=== PATIENT | female | born 1945 | race Caucasian/White ===

== ENCOUNTER 2020-08-27 05:29 | Inpatient (IN) | payer MEDICARE, OTHER ==
[~2020-08-27] VITALS: Ht 154.9 cm; Wt 65.8 kg
[2020-08-27] VITALS (26 sets, daily range): BP systolic 73–130; BP diastolic 40–78
--- NOTE | 2020-08-27 05:33 | NUR ---
pt bibra c/o sob. Pt unable to answer questions. Pt attached to monitor and groundwater monitoring technician and pox. Md at bedside for eval. Rt hand 18g and left hand 20g initated. Blood obtained and sent to lab. Upon assessment, pt right arm is red and slightly swollen. pt given blanket and call light within reach
[2020-08-27] MEDS ORDERED: NTG 50 MG/D5W250 ML BOTTL 250 ML IV ONE ×2 (05:46→06:00)
[2020-08-27 05:54] LABS: BASOPHILS # (AUTO) 0.1 /CMM (0.0-0.2); BASOPHILS % (AUTO) 0.7 % (0.0-2.0); EOSINOPHILS % (AUTO) 0.2 % (0.0-6.0); HEMATOCRIT 47 % (33-45); HEMOGLOBIN 15.5 g/dL (11.5-14.8); LYMPHOCYTES # (AUTO) 4.3 /CMM (0.8-4.8); LYMPHOCYTES % (AUTO) 26.6 % (20.0-44.0); MEAN CORPUSCULAR HGB CONC 33 g/dl (31.0-36.0); MEAN CORPUSCULAR VOLUME 90 fL (82-100); MONOCYTES # (AUTO) 0.4 /CMM (0.1-1.30); MONOCYTES % (AUTO) 2.8 % (2.0-12.0); NEUTROPHILS # (AUTO) 11.2 /CMM (1.8-8.9); NEUTROPHILS % (AUTO) 69.7 % (43.0-81.0); PLATELET COUNT (AUTO) 346 /CMM (150-450); RED BLOOD CELL COUNT(AUTO) 5.22 MIL/uL (4.0-5.2); WHITE BLOOD COUNT (AUTO) 16.1 K/uL (4.3-11.0)
[2020-08-27 06:11] LABS: CALCIUM, SERUM 9.6 mg/dL (8.5-10.1); CARBON DIOXIDE 36 mmol/L (21-32); CHLORIDE 95 mmol/L (98-107); CREATININE 0.4 mg/dL (0.6-1.3); GLUCOSE 262 mg/dL (74-106); POTASSIUM 3.3 mmol/L (3.5-5.1); SODIUM SERUM 134 mmol/L (136-145); UREA NITROGEN, BLOOD 13 mg/dL (7-18)
--- NOTE | 2020-08-27 06:15 | NUR ---
covid swabs sent to lab
[2020-08-27 06:24] LABS: ALANINE AMINOTRANSFERASE 33 U/L (12-78); ALBUMIN 3.9 g/dL (3.4-5.0); ALKALINE PHOSPHATASE 128 U/L (46-116); ASPARTATE AMINOTRANSFERASE 27 U/L (15-37); BILIRUBIN,DIRECT 0.2 mg/dL (0.0-0.2); BILIRUBIN,TOTAL 0.7 mg/dL (0.2-1.0); TOTAL PROTEIN, SERUM 8.1 g/dL (6.4-8.2)
--- NOTE | 2020-08-27 07:05 | NUR ---
gave report to AFSANEH Matos for ashley
[2020-08-27] MEDS ORDERED: FUROSEMIDE 20 MG/2 ML VIAL ONE (07:30)
[2020-08-27] MEDS ORDERED: FUROSEMIDE 20 MG/2 ML VIAL IV ONE (07:30)
--- NOTE | 2020-08-27 07:30 | NUR ---
ASSESSED PT ON BED ASLEEP ON BED EASILY AROUSABLE, ON NON RB AT 15LPM SAT AT 95%, WITH ONGOING NITRO DRIP. V/S STABLE, KEPT RESTED AND COMFORTABLE. WILL CONTINUE TO MONITOR.
--- NOTE | 2020-08-27 08:33 | NUR ---
room [id number]
[2020-08-27] MEDS ORDERED: POTA8TAB3 PO (08:40)
[2020-08-27] MEDS ORDERED: MULT-447 PO (08:40)
[2020-08-27] MEDS ORDERED: BISA10SU11 RC (08:40)
[2020-08-27] MEDS ORDERED: DOCU-141 PO (08:40)
[2020-08-27] MEDS ORDERED: IPRA4AER IH (08:40)
[2020-08-27] MEDS ORDERED: ACET-2605 PO (08:40)
[2020-08-27] MEDS ORDERED: NA P133E RC (08:40)
[2020-08-27] MEDS ORDERED: ESCI10TA PO (08:40)
[2020-08-27] MEDS ORDERED: ASPI-1420 PO (08:40)
[2020-08-27] MEDS ORDERED: RILU50TA4 PO (08:40)
[2020-08-27] MEDS ORDERED: GUAI120013 PO (08:40)
[2020-08-27] MEDS ORDERED: ASCO-352 PO (08:40)
[2020-08-27] MEDS ORDERED: ACET-868 PO (08:40)
[2020-08-27] MEDS ORDERED: MAGN400T26 PO (08:40)
[2020-08-27] MEDS ORDERED: MAGN400O6 PO (08:40)
--- NOTE | 2020-08-27 08:40 | NUR ---
REPORT GIVEN TO AFSANEH SANTOS FOR BEA. WITH ONGOING NTG DRIP.
[2020-08-27 10:03] LABS: ABG BASE EXCESS 1.2 mmol/L; ABG OXYGEN SATURATION 99.5 % (92.0-98.5); ABG PCO2 64.5 mmHg (35.0-45.0); ABG PH 7.283 (7.350-7.450); AaDO2 446.5 mmHg; COHb 2.4 % (0.5-1.5); MetHb 0.1 % (0.0-1.5); SITE, ABG Right Radial; VENT MODE, BG ST 15/5 100% BUR 12
--- NOTE | 2020-08-27 10:30 | NUR ---
RN RECEIVING NOTES REPORT RECEIVED FROM RN BREONNA. PATIENT ARRIVED IN RM 257 VIA ACLS PROTOCOL. BIPAP SETTINGS AT 15/5 100% FIO2 AND NOT IN ANY DISTRESS. ASTER MIDLINE AND PERIPHERAL LINESX2 INTACT. NITROGLYCERIN DRIN WAS NOT RESUMED DUE TO DECREASED BP IN THE 70S ON ARRIVAL. SAFETY CHECKS IN PLACE. WILL CONTINUE TO MONITOR.
--- NOTE | 2020-08-27 10:39 | NUR ---
fio2 titrate down by dr. Hurst from 100% to 80%. rn aware on changes made. Addendum: 08/27/20 at 1040 by ANISH KIRKPATRICK RT Amended: Links added.
--- NOTE | 2020-08-27 11:30 | NUR ---
RN NOTE SON CAME TO VISIT. HE CONFIRMED THAT PATIENT HAS RECEIVED 2 DOSES OF MODERNA VACCINE EARLY THIS YEAR UNABLE TO SAY EXACT DATES.
[2020-08-27] MEDS ORDERED: ONDANSETRON HCL/PF 4 MG/2 ML VIAL IVP PRN (13:00)
[2020-08-27] MEDS ORDERED: ACETAMINOPHEN 650 MG/SUPP.RECT RC PRN (13:00)
[2020-08-27] MEDS: IPRATROPIUM NEB FS 0.5 MG/2.5 ML AMPUL.NEB NEB SCH ×2 (13:09→19:30)
[2020-08-27] MEDS: ALBUTEROL HALF STRENGTH 1.25 MG/3 ML VIAL.NEB NEB SCH ×2 (13:09→19:30)
[2020-08-27] MEDS: ENOXAPARIN SODIUM 40 MG/0.4 ML DISP.SYRIN SQ SCH (13:16)
[2020-08-27 13:54] LABS: ABG BASE EXCESS 2.7 mmol/L; ABG OXYGEN SATURATION 98.8 % (92.0-98.5); ABG PCO2 58.6 mmHg (35.0-45.0); ABG PH 7.331 (7.350-7.450); ABG PO2 128.2 mmHg (75.0-100.0); AaDO2 380.7 mmHg; COHb 2.4 % (0.5-1.5); MetHb 0.2 % (0.0-1.5); O2Hb 96.2 % (94.0-97.0); SITE, ABG Right Radial; VENT MODE, BG 15 IPAP / 5 EPAP
--- NOTE | 2020-08-27 14:09 | NUR ---
fio2 decreased from 80% to 40% due to 100% spo2 and 128 pao2. Addendum: 08/27/20 at 1410 by ANISH KIRKPATRICK RT Amended: Links added.
--- NOTE | 2020-08-27 15:00 | NUR ---
RN NOTE ECHO WAS DONE AND RESULTED WITH 55-60% EF. EKG ALSO SHOWS NSR.
--- NOTE | 2020-08-27 16:50 | NUR ---
RN NOTE DR HAMMOND NOTIFIED OF PATIENT'S URINE OUTPUT OF 60MLS DESPITE RECEIVING LASIX 20MG AT ER THIS MORNING.
--- NOTE | 2020-08-27 18:23 | NUR ---
RN CLOSING NOTES PATIENT IS AWAKE, MOUTHS INCOMPREHENSIBLE WORDS FROM UNDER THE MASK. BIPAP SETTINGS AT 15/5 40% FIO2 AND NOT IN ANY DISTRESS. ASTER MIDLINE AND PERIPHERAL LINESX2 INTACT. KEPT NPO. DIAZ DRAINED 100MLS THE LAST 8HRS-MD NOTIFIED. SAFETY CHECKS IN PLACE. WILL ENDORSE TO NIGHT RN FOR CONTINUITY OF CARE..
--- NOTE | 2020-08-27 19:32 | NUR ---
RT NOTE TX NOT GIVEN DUE TO PENDING COVID RESULTS. NO RESPIRATORY DISTRESS NOTED AT THIS TIME. RN TA AWARE. WILL MONITOR.
[2020-08-28] VITALS (46 sets, daily range): BP systolic 86–191; BP diastolic 42–128
[2020-08-28] MEDS: ALBUTEROL HALF STRENGTH 1.25 MG/3 ML VIAL.NEB NEB SCH ×4 (01:30→20:00)
[2020-08-28] MEDS: IPRATROPIUM NEB FS 0.5 MG/2.5 ML AMPUL.NEB NEB SCH ×4 (01:30→20:00)
--- NOTE | 2020-08-28 02:00 | NUR ---
QUALITY ASSURANCE CALIBRATOR PT NOTED TO DESATURATE TO 81% FIO2 INCREASEDTO 100% BY RT. ABG ORDERED BY WORKPLACE RELATIONS ADVISER. HR 129 BP 184/128. ABG PH 7.207 PCO2 74.6 PO2 55 AND HCO3 29. RELAYED TO DR MELLY Galaviz/ORDERS TO CONTINUE MONITORING.
--- NOTE | 2020-08-28 02:04 | NUR ---
RT NOTE SPO2 READING @ 90% HR 133 RR 23. AWAITING NEW ORDERS. WILL CONTINUE TO MONITOR CLOSELY.
--- NOTE | 2020-08-28 02:06 | NUR ---
RT NOTE TX NOT GIVEN DUE TO PENDING COVID RESULTS. ABG PERFORMED @ 5563 AND RESULTS REPORTED TO AFSANEH CHAPPELL AND MD PICKARD. WILL CONTINUE TO MONITOR AND AWAIT FURTHER ORDERS.
--- NOTE | 2020-08-28 03:00 | NUR ---
FORENSIC EXAMINER CALL PLACED TO DR PICKARD PT BP 170/85; PT ON BIPAP NOT RECEIVING ADEQUATE VOLUME.
--- NOTE | 2020-08-28 03:46 | NUR ---
JOGGLE PRESS OPERATOR EXCHANGE ATTEMTPING TO REACH DR PICKARD AGAIN.
--- NOTE | 2020-08-28 04:17 | NUR ---
CREDIT ADMINISTRATION OFFICER RCD ORDERS FROM DR PICKARD TO REPEAT ABG.
--- NOTE | 2020-08-28 04:31 | NUR ---
WE WERE ADVISED BY ICU NURSE TO XRAY CX LATER POSSIBLE INTUBATION OF PATIENT AT 04:15 HRS
--- NOTE | 2020-08-28 04:37 | NUR ---
BRANCH LEAD RCD CALL FROM PTS SON COTY GRACE [phone] RT IS DOING ABG. UPDATED SON ON PTS CONDITION. PER SON PT SHOULD NOT BE INTUBATED PT IS DNR. SON STARTED CRYING STATING HE WANTS TO BE HERE WITH THE MOTHER WHEN SHE PASSESS. PER GAGANDEEP IN CHART FROM JUNE 2020 PT IS A FULL CODE AND WANTS ALL TREATMENT EXCEPT FEEDING TUBE. SON ON HIS WAY TO HOSPITAL AT THIS TIME.
[2020-08-28 04:43] LABS: BASOPHILS % (AUTO) 0.1 % (0.0-2.0); HEMATOCRIT 47 % (33-45); HEMOGLOBIN 15.2 g/dL (11.5-14.8); LYMPHOCYTES # (AUTO) 0.5 /CMM (0.8-4.8); LYMPHOCYTES % (AUTO) 1.7 % (20.0-44.0); MEAN CORPUSCULAR HGB CONC 33 g/dl (31.0-36.0); MEAN CORPUSCULAR VOLUME 90 fL (82-100); MONOCYTES # (AUTO) 0.8 /CMM (0.1-1.30); MONOCYTES % (AUTO) 2.5 % (2.0-12.0); NEUTROPHILS # (AUTO) 28.7 /CMM (1.8-8.9); NEUTROPHILS % (AUTO) 95.7 % (43.0-81.0); PLATELET COUNT (AUTO) 331 /CMM (150-450); RED BLOOD CELL COUNT(AUTO) 5.19 MIL/uL (4.0-5.2)
[2020-08-28 04:47] LABS: ABG BASE EXCESS -1.3 mmol/L; ABG OXYGEN SATURATION 83.7 % (92.0-98.5); ABG PCO2 74.6 mmHg (35.0-45.0); ABG PH 7.207 (7.350-7.450); AaDO2 583.4 mmHg; COHb 2.9 % (0.5-1.5); MetHb 0.2 % (0.0-1.5); O2Hb 81.1 % (94.0-97.0); SITE, ABG Right Radial
[2020-08-28 04:47] LABS: ABG OXYGEN SATURATION 96.6 % (92.0-98.5); ABG PCO2 127.9 mmHg (35.0-45.0); ABG PH 7.057 (7.350-7.450); ABG PO2 109.8 mmHg (75.0-100.0); AaDO2 475.3 mmHg; MetHb 0.2 % (0.0-1.5); O2Hb 93.5 % (94.0-97.0); SITE, ABG Right Radial
[2020-08-28 04:48] LABS: WHITE BLOOD COUNT (AUTO) 30.1 K/uL (4.3-11.0)
--- NOTE | 2020-08-28 04:48 | NUR ---
RT NOTE PERFORMED ABG ON RIGHT RADIAL. ABG RESULTS REPORTED TO RN TA AND MELLY JAMISON. WILL AWAIT FURTHER ORDERS.
--- NOTE | 2020-08-28 04:50 | NUR ---
ORACLE FINANCIALS DEVELOPER PH [phone] PCO2 127.9 PO2 109.8 HCO3 35.2 AWAITING SONS ARRIVAL TO DETERMINE CODE STATUS.
[2020-08-28 05:08] LABS: CALCIUM, SERUM 9.7 mg/dL (8.5-10.1); CREATININE 0.7 mg/dL (0.6-1.3); MAGNESIUM 2.2 mg/dL (1.8-2.4); POTASSIUM 3.5 mmol/L (3.5-5.1); THYROID STIMULATING HORMONE 1.337 uIU/mL (0.358-3.74)
--- NOTE | 2020-08-28 05:08 | NUR ---
BORING MILL OPERATOR FOR METAL ANNALEE GRACE AT BEDSIDE DOES NOT WANT PT TO BE INTUBATED. CALL PLACED TO DR PICKARD.
[2020-08-28 05:09] LABS: BAND % (MANUAL) 2 % (0.0-5.0); BASOPHILS % (MANUAL) 0 % (0.0-2.0); EOSINOPHILS % (MANUAL) 0 % (0-4); LYMPHOCYTES % (MANUAL) 4 % (16-48); MONOCYTES % (MANUAL) 3 % (0-11.0); NEUTROPHILS % (MANUAL) 91 (42-76)
--- NOTE | 2020-08-28 07:00 | NUR ---
RN NOTES RECEIVED PT ON BED, LETHARGIC , OPENS EYES TO VERBAL STIMULI, FOLLOWS SIMPLE COMMAND, ON TELE SR HR IN 90'S , ON BI PAP, O2 SAT WNL, PT IS DNR AND DNI , DIAZ DRAINING TO GRAVITY, R HAND AND L HAND IV SITES, CLEAN, DRY AND INTACT, SR UP x3, CALL LIGHT WITHIN EASY REACH, BED LOCKED AND IN LOWEST POSITION, CONTINUE TO MONITOR.
[2020-08-28] MEDS: PANTOPRAZOLE 40 MG VIAL IV SCH (08:15)
--- NOTE | 2020-08-28 08:53 | NUR ---
RT PER DR PINK PATIENT PLACED ON AVAPS MODE ON BIPAP. RR18, VT500, PEEP +5 100% FIO2. Addendum: 08/28/20 at 0854 by ISABELLA DEL RIO RT Amended: Links added.
[2020-08-28] MEDS ORDERED: BUMETANIDE INJ 8 MG in IV NS 0.9% 48 ML IV ONE (09:00)
[2020-08-28] MEDS ORDERED: Z GUARD REMEDY 2 OZ OINT TP PRN (09:00)
[2020-08-28] MEDS: POTASSIUM CL. PREMIX PERIPHER. 50 ML IV SCH ×4 (09:19→12:30)
--- NOTE | 2020-08-28 11:00 | NUR ---
RN NOTES PT'S SON REQUESTING TO TRANSFER THE PT TO [facility], DR HAMMOND NOTIFED .
[2020-08-28 11:34] LABS: BILIRUBIN,URINE MODERATE (NEGATIVE); COLOR,URINE DARK YELLOW (YELLOW); LEUKOCYTE ESTERASE ,URINE TRACE (NEGATIVE); NITRITE, URINE NEGATIVE (NEGATIVE); PROTEIN,URINE 100 mg/dl (NEGATIVE); UGLUCOSE NEGATIVE (NEGATIVE)
[2020-08-28 11:46] LABS: ABG BASE EXCESS 2.3 mmol/L; ABG OXYGEN SATURATION 98.8 % (92.0-98.5); ABG PCO2 63.7 mmHg (35.0-45.0); ABG PO2 139.3 mmHg (75.0-100.0); COHb 1.9 % (0.5-1.5); MetHb 0.2 % (0.0-1.5); O2Hb 96.7 % (94.0-97.0); SITE, ABG Left Radial; VENT MODE, BG avap vt500 18rr 100% +5
[2020-08-28] MEDS: ENOXAPARIN SODIUM 40 MG/0.4 ML DISP.SYRIN SQ SCH (12:04)
[2020-08-28] MEDS: PIPERACILLIN /TAZOBACTAM 3.375 G in IV D5W 50 ML IV SCH ×2 (12:27→17:41)
[2020-08-28 12:56] LABS: RBC,URINE 21-50 /HPF (0-2)
[2020-08-28 12:57] LABS: BACTERIA,URINE Many /HPF (None Seen); SQUAMOUS EPITHELIAL CELL,UR Few /HPF (None Seen)
--- NOTE | 2020-08-28 14:00 | NUR ---
RN NOTES PT REMAINS ON BIPAP, SON AT THE BEDSIDE, CONTINUE TO MONITOR .
--- NOTE | 2020-08-28 18:00 | NUR ---
RN NOTES PT REMAINS ON BIPAP. O2 SAT WNL, AWAITING TO BE TRANSFER TO [facility], VSS STABLE, WILL ENDOSE TO SUPERVISOR COMMUNICATIONS AND SIGNALS NURSE FOR CONTINUITY OF CARE .
--- NOTE | 2020-08-28 19:40 | NUR ---
RN NOTES RECEIVED PATIENT ASLEEP ON BED WITH BIPAP ON RATE12 15/5 FIO2 100%. PATIENT IS ALERT ORIENTED TO NAME SINUS TACHY HR 120'S.NO ACUTE RESP. DISTRESS. IV SITE ON RIGHT HAND G 18 AND LH G 20 AND LEFT ARM MIDLINE INTACT AND PATENT AND FLUSHED WELL. PATIENT HAS DIAZ CATH DRAINED VIA GRAVITY. TURN AND REPOSITION FOR COMFORTABLE. KEPT PT CLEAN AND DRY. WILL CONT. TO MONITOR.
[2020-08-29] VITALS (50 sets, daily range): BP systolic 86–179; BP diastolic 51–109
[2020-08-29] MEDS: PIPERACILLIN /TAZOBACTAM 3.375 G in IV D5W 50 ML IV SCH ×4 (00:34→17:17)
--- NOTE | 2020-08-29 01:00 | NUR ---
RN NOTES BED BATH DONE AND TOLERATED WELL. NO BM. VS REMAINED STABLE. REPOSITION PATIENT COMFORTABLE. KEPT PT CLEAN AND DRY. WILL CLOSELY MONITOR.
[2020-08-29] MEDS: ALBUTEROL HALF STRENGTH 1.25 MG/3 ML VIAL.NEB NEB SCH ×3 (01:23→13:37)
[2020-08-29] MEDS: IPRATROPIUM NEB FS 0.5 MG/2.5 ML AMPUL.NEB NEB SCH ×3 (01:23→13:37)
--- NOTE | 2020-08-29 03:25 | NUR ---
RN NOTES RECEIVED A CALL FROM [facility] SPOKE TO NIRU FROM TRANSFER CENTER AND GIVE UPDATE REGARDING PATIENT. PER NIRU THERES NO AVAILABLE BED AT THIS TIME. AND THEY WILL CALL FOR BED STATUS IF AVAILABLE.
--- NOTE | 2020-08-29 03:40 | NUR ---
RN NOTES COTY (SON), CALLED AND ASK FOR UPDATE OF HIS MOM. PATIENT ASLEEP AT THIS TIME WITH VSS. SON AND GIVE UPDATE REGARDING BED STATUS . AWARE THAT THE PATIENT WILL NOT BE TRANSFER UNTIL SHE WAS STABLE ENOUGH.
[2020-08-29 04:24] LABS: BASOPHILS # (AUTO) 0.1 /CMM (0.0-0.2); BASOPHILS % (AUTO) 0.5 % (0.0-2.0); HEMATOCRIT 44 % (33-45); HEMOGLOBIN 14.3 g/dL (11.5-14.8); LYMPHOCYTES # (AUTO) 0.4 /CMM (0.8-4.8); LYMPHOCYTES % (AUTO) 1.7 % (20.0-44.0); MEAN CORPUSCULAR HGB CONC 33 g/dl (31.0-36.0); MEAN CORPUSCULAR VOLUME 90 fL (82-100); MONOCYTES # (AUTO) 0.7 /CMM (0.1-1.30); MONOCYTES % (AUTO) 2.6 % (2.0-12.0); NEUTROPHILS # (AUTO) 24.8 /CMM (1.8-8.9); NEUTROPHILS % (AUTO) 95.2 % (43.0-81.0); PLATELET COUNT (AUTO) 279 /CMM (150-450); RED BLOOD CELL COUNT(AUTO) 4.87 MIL/uL (4.0-5.2); WHITE BLOOD COUNT (AUTO) 26.1 K/uL (4.3-11.0)
[2020-08-29 04:40] LABS: ALBUMIN 3.1 g/dL (3.4-5.0); BILIRUBIN,TOTAL 0.9 mg/dL (0.2-1.0); CALCIUM, SERUM 9.2 mg/dL (8.5-10.1); CREATININE 0.8 mg/dL (0.6-1.3); MAGNESIUM 2.2 mg/dL (1.8-2.4); PHOSPHORUS 5.8 mg/dL (2.5-4.9); POTASSIUM 3.9 mmol/L (3.5-5.1); TOTAL PROTEIN, SERUM 7.4 g/dL (6.4-8.2)
--- NOTE | 2020-08-29 07:05 | NUR ---
RN NOTES RECEIVED PT ON BED, LETHARGIC , OPENS EYES TO VERBAL STIMULI, FOLLOWS SIMPLE COMMAND, ON TELE SR HR IN 90'S , ON BIPAP, O2 SAT WNL, PT IS DNR AND DNI , DIAZ DRAINING TO GRAVITY, R HAND AND L HAND IV SITES, CLEAN, DRY AND INTACT, SR UP x3, CALL LIGHT WITHIN EASY REACH, BED LOCKED AND IN LOWEST POSITION, CONTINUE TO MONITOR.
[2020-08-29] MEDS: PANTOPRAZOLE 40 MG VIAL IV SCH (08:06)
[2020-08-29 10:06] LABS: ABG OXYGEN SATURATION 95.5 % (92.0-98.5); ABG PCO2 55.1 mmHg (35.0-45.0); ABG PH 7.326 (7.350-7.450); ABG PO2 73.9 mmHg (75.0-100.0); AaDO2 438.7 mmHg; COHb 2.5 % (0.5-1.5); MetHb 0.2 % (0.0-1.5); O2Hb 92.9 % (94.0-97.0); SITE, ABG Left Radial
[2020-08-29] MEDS: ENOXAPARIN SODIUM 40 MG/0.4 ML DISP.SYRIN SQ SCH (12:30)
--- NOTE | 2020-08-29 13:00 | NUR ---
RN NOTES PT ON BIPAP ,SON AT THE BEDSIDE, O2 SAT WNL , CONTINUE TO MONITOR .
--- NOTE | 2020-08-29 17:30 | NUR ---
RN NOTES O2 SAT IN LOW 70'S , DR PINK NOTIFIED, PT PLACED ON LEFT SIDE DOWN WITH CHEST PT. PLACED ON PEEP OF 10, BREATHING TX ORDERED PER MD ORDER , CONTINUE TO MONITOR.
--- NOTE | 2020-08-29 17:51 | NUR ---
RT PATIENT REMAINS ON BIPAP PER DR PINK PEEP INCREASED TO 10. FIO2 INCREASED TO 100%. PATIENT IN CRITICAL CONDITION WITH NOTED DECOMPENSATION. DR PINK AWARE. Addendum: 08/29/20 at 1753 by ISABELLA DEL RIO RT Amended: Links added.
[2020-08-29] MEDS ORDERED: ACETYLCYSTEINE 10% SOLN 400 MG/4 ML VIAL NEB SCH (18:00)
[2020-08-29] MEDS ORDERED: IPRATROPIUM NEB FS 0.5 MG/2.5 ML AMPUL.NEB NEB SCH (18:00)
--- NOTE | 2020-08-29 18:37 | NUR ---
RN NOTES PT OPENS EYES TO VERBAL STIMULI, FOLLOW SIMPLE COMMAND, ON BIPAP, PEEP AT 10 , O2 SAT IN LOW 80'S , MD AWARE, PT IS DNR/DNI, PT IS ON HER LEFT SIDE PER DR PINK ORDER . SR UP x3, CALL LIGHT WITHIN EASY REACH, BED LOCKED AND IN LOWEST POSITION, WILL ENDORSE TO NUCLEAR REACTOR ENGINEER NURSE FOR CONTINUITY OF CARE .
--- NOTE | 2020-08-29 19:40 | NUR ---
RN NOTES RECEIVED PATIENT ON BIPAP ON 22/07 RATE 18 FIO2 100% WITH PEEP 10 PATIENT IS ALERT TO NAME. SR/ST ON MONITOR. RESPONSIVE TO TACTILE STIMULI. PATIETN SATURATION IS <85% AND DR. PINK IS AWARE WITH ORDER TO PLACE PATIENT ON LEFT SIDE DOWN , CHEST PT ON RIGHT CHEST AND GIVE MUCOMYST AND ATROVENT BID AND PEEP 10 PER ANNEALING OVEN OPERATOR PATIENT IS DEVELOPING PROGRESSIVE ATELECTASIS ON RIGHT WITH SHUNTING. REMINDED AND VERIFIED RESPIRATORY THERAPHY ABOUT MD ORDER. IV SITE ON RIGHT HAND AND LA MIDLINE INTACT AND PATENT. DIAZ CATH DRAINED VIA GRAVITY. REPOSITION PATIENT ORDERED AND FOR SKIN SAFETY. WILL CLOSELY MONITOR.
--- NOTE | 2020-08-29 20:20 | NUR ---
RN NOTES INFORM REGARDING FAMILY REQUEST TO TALK TO SON COTY PATIENT WAS DESATING TO <85% AND FAMILY INSIST TO TALK TO MD AT THIS TIME. DESPITE OF EXPLANATION ABOUT THE ANIMAL KEEPER HEAD ORDER [facility] RT AND CN. AWAITING FOR MD TO RESPOND
[2020-08-29] MEDS ORDERED: ALBUTEROL HALF STRENGTH 1.25 MG/3 ML VIAL.NEB NEB PRN (20:30)
[2020-08-29] MEDS ORDERED: IPRATROPIUM NEB FS 0.5 MG/2.5 ML AMPUL.NEB NEB PRN (20:30)
[2020-08-29] MEDS: ACETYLCYSTEINE 10% SOLN 400 MG/4 ML VIAL NEB SCH (20:48)
--- NOTE | 2020-08-29 21:05 | NUR ---
RN NOTES BREATHING TX ORDERED ADMINISTERED TO PATIENT,PLACED ONLEFT SIDE DOWN AND CPT DONE ON RIGHT CHEST BY RT. SATURATION REMAINED ON BETWEEN 78-84%. ANNALEE ANSARI AT BEDSIDE.
[2020-08-30] VITALS (45 sets, daily range): BP systolic 78–136; BP diastolic 52–80
[2020-08-30] MEDS: PIPERACILLIN /TAZOBACTAM 3.375 G in IV D5W 50 ML IV SCH ×4 (00:01→17:50)
[2020-08-30 04:17] LABS: BASOPHILS # (AUTO) 0.1 /CMM (0.0-0.2); BASOPHILS % (AUTO) 0.2 % (0.0-2.0); HEMATOCRIT 45 % (33-45); HEMOGLOBIN 14.4 g/dL (11.5-14.8); LYMPHOCYTES # (AUTO) 0.6 /CMM (0.8-4.8); LYMPHOCYTES % (AUTO) 2.5 % (20.0-44.0); MEAN CORPUSCULAR HGB CONC 32 g/dl (31.0-36.0); MEAN CORPUSCULAR VOLUME 92 fL (82-100); MONOCYTES # (AUTO) 1.1 /CMM (0.1-1.30); MONOCYTES % (AUTO) 4.3 % (2.0-12.0); NEUTROPHILS # (AUTO) 23.3 /CMM (1.8-8.9); PLATELET COUNT (AUTO) 326 /CMM (150-450); RED BLOOD CELL COUNT(AUTO) 4.91 MIL/uL (4.0-5.2); WHITE BLOOD COUNT (AUTO) 25.1 K/uL (4.3-11.0)
[2020-08-30 04:24] LABS: CALCIUM, SERUM 9.3 mg/dL (8.5-10.1); CREATININE 1.1 mg/dL (0.6-1.3); MAGNESIUM 2.8 mg/dL (1.8-2.4); PHOSPHORUS 7.9 mg/dL (2.5-4.9); POTASSIUM 3.4 mmol/L (3.5-5.1)
--- NOTE | 2020-08-30 07:10 | NUR ---
RN NOTES RECEIVED PATIENT IN BED RESTING COMFORTABLY IN MODERATE HIGH BACK REST, LETHARGIC AND RESPONSIVE TO DEEP PAIN, REMAINED ON EVAP RATE 18 TV 500 AND FIO2 100% AND PEEP 10 TOLERATED AT THIS TIME SATURATION NOW 97%. ST ON MONITOR HR 100'S. IV SITE REMAINED INTACT AND PATENT. DIAZ CATH INTACT AND PATENT DRAINING FREELY VIA GRAVITY. SAFETY MEASURES MAINTAINED, WILL CONTINUE TO MONITOR.
--- NOTE | 2020-08-30 07:15 | NUR ---
RN NOTES PATIENT REMAINED ON AVAPSRATE 18 TV 500 AND FIO2 100% AND PEEP 10 TOLERATED AT THIS TIME SATURATION NOW A98%.. AFEBRILE. VSS. ST ON MONITOR HR 90'S AND LOW 110'S. PATIENT REMAINED LETHARGIC RESPONSIVE TO DEEP PAIN. IV SITE REMAINED INTACT AND PATENT. DIAZ CATH DRAINED WITH SMALL AMT. OF URINE. KEPT PT CLEAN AND DRY.. ENDORSE TO NEXT SHIFT TO TURN PATIENT ON LEFT SIDE AND SUPINE TO BREATH WELL PER ASSISTANT PROFESSOR OF PHYSICS RECOMMENDATION.
[2020-08-30] MEDS: ACETYLCYSTEINE 10% SOLN 400 MG/4 ML VIAL NEB SCH ×2 (07:48→19:34)
[2020-08-30] MEDS: Potassium Chloride 20 MEQ in IV NS 0.9% 1,000 ML IV SCH ×2 (08:29→22:30)
[2020-08-30] MEDS: PANTOPRAZOLE 40 MG VIAL IV SCH (08:33)
[2020-08-30 08:40] LABS: ABG BASE EXCESS 0.9 mmol/L; ABG OXYGEN SATURATION 98.6 % (92.0-98.5); ABG PCO2 70.7 mmHg (35.0-45.0); ABG PH 7.249 (7.350-7.450); ABG PO2 117.8 mmHg (75.0-100.0); AaDO2 524.5 mmHg; MetHb 0.2 % (0.0-1.5); O2Hb 96.4 % (94.0-97.0); PEEP,BG 10 cm H2O; SITE, ABG Right Brachial; VENT MODE, BG AVAPS: MIN P 15/ MAX P 30; VT, ABG 500 mL
--- NOTE | 2020-08-30 08:52 | NUR ---
bipap changes below per dr. hay: epap 5 fio2 80% rn notified on changes. Addendum: 08/30/20 at 0853 by ANISH KIRKPATRICK RT Amended: Links added.
[2020-08-30] MEDS: ENOXAPARIN SODIUM 40 MG/0.4 ML DISP.SYRIN SQ SCH (12:17)
[2020-08-30] MEDS ORDERED: ACETYLCYSTEINE 10% SOLN 400 MG/4 ML VIAL NEB SCH (18:00)
--- NOTE | 2020-08-30 18:28 | NUR ---
fio2 increased from 80% to 100% due to 84% spo2. Addendum: 08/30/20 at 1829 by ANISH KIRKPATRICK RT Amended: Links added.
--- NOTE | 2020-08-30 18:34 | NUR ---
RN NOTES PATIENT IN BED RESTING COMFORTABLY IN MODERATE HIGH BACK REST, OPEN EYES AND FOLLOW SIMPLE COMMAND,NONVERBAL, REMAINED ON EVAP RATE 18 TV 500 AND FIO2 100% AND PEEP 5 TOLERATED AT THIS TIME SATURATION NOW 93%. ST ON MONITOR HR 100'S. IV SITE REMAINED INTACT AND PATENT. DIAZ CATH INTACT AND PATENT DRAINING FREELY VIA GRAVITY. SAFETY MEASURES MAINTAINED, WILL ENDORSE TO MEXICAN FOOD MAKER NURSE FOR BEA.
--- NOTE | 2020-08-30 19:15 | NUR ---
RECEIVED PT ON BED LETHARGIC, OPEN EYES NOT FOLLOWING ANY COMMANDS, ON AVAPS MODE SETTING PER MD FIO2 100% SPO2 93% NO PAIN NOTED, TELE MONITOR READS SINUS TACHY 120'S, HAVE LA ML WITH ONGOIGN KCL 20 MEQ+NS @ 70ML/HR INFUSING WELL , HAVE DIAZ WITH YELLOW URINE DRAINING VIA GRAVITY BED ON LOWEST POSITION AND LOCKED SIDE RAILS UP X 2 CALL LIGHT WITHIN REACH WILL CONT TO MONITOR
[2020-08-30] MEDS: IPRATROPIUM NEB FS 0.5 MG/2.5 ML AMPUL.NEB NEB SCH (19:34)
--- NOTE | 2020-08-30 19:35 | NUR ---
RCVD PT ON AVAP MODE, RATE 18, EPAP 5 , VT 500, FIO2 100%. PT IS LETHARGIC AND NOT FOLLOWING COMMANDS. BREATHING TX GIVEN PER MD'S ORDER, NO ADVERSE REACTION NOTED. AMBU BAG @ BEDSIDE. WILL CONTINUE TO MONITOR T/O SHIFT.
[2020-08-31] VITALS (32 sets, daily range): BP systolic 88–158; BP diastolic 57–83
--- NOTE | 2020-08-31 00:38 | NUR ---
PT ON BED SLEEPING NO SIGN OF RESPIRATORY DISTRESS, NO PAIN NOTED STILL ON AVAPS SETTING PER MD FIO2 100% SPO2 96% WILL CONT TO MONITOR THE PT
[2020-08-31 04:19] LABS: BASOPHILS % (AUTO) 0.1 % (0.0-2.0); HEMATOCRIT 40 % (33-45); HEMOGLOBIN 12.9 g/dL (11.5-14.8); LYMPHOCYTES # (AUTO) 0.6 K/uL (0.8-4.8); LYMPHOCYTES % (AUTO) 2.8 % (20.0-44.0); MEAN CORPUSCULAR HGB CONC 33 g/dl (31.0-36.0); MEAN CORPUSCULAR VOLUME 89 fL (82-100); MONOCYTES # (AUTO) 0.9 K/uL (0.1-1.30); NEUTROPHILS # (AUTO) 20.3 K/uL (1.8-8.9); NEUTROPHILS % (AUTO) 93.1 % (43.0-81.0); PLATELET COUNT (AUTO) 230 K/uL (150-450); RED BLOOD CELL COUNT(AUTO) 4.43 MIL/uL (4.0-5.2); WHITE BLOOD COUNT (AUTO) 21.8 K/uL (4.3-11.0)
[2020-08-31 04:31] LABS: CALCIUM, SERUM 8.7 mg/dL (8.5-10.1); CARBON DIOXIDE 28 mmol/L (21-32); CHLORIDE 108 mmol/L (98-107); CREATININE 1.7 mg/dL (0.6-1.3); GLUCOSE 172 mg/dL (74-106); MAGNESIUM 2.5 mg/dL (1.8-2.4); POTASSIUM 3.8 mmol/L (3.5-5.1); SODIUM SERUM 149 mmol/L (136-145)
[2020-08-31 04:41] LABS: UREA NITROGEN, BLOOD 94 mg/dL (7-18)
[2020-08-31] MEDS ORDERED: MEROPENEM 500 MG in IV NS 0.9% 50 ML IV SCH (05:00)
[2020-08-31] MEDS ORDERED: MEROPENEM 500 MG in IV NS 0.9% 50 ML IV ONE (05:00)
[2020-08-31] MEDS ORDERED: MEROPENEM 500 MG VIAL IV ONE (05:28)
[2020-08-31 05:35] LABS: PHOSPHORUS 5.6 mg/dL (2.5-4.9)
--- NOTE | 2020-08-31 07:02 | NUR ---
PT ON BED ASLEEP EASY TO WAKE UP, STILL ON AVAP SETTING PER FIO2 100% SPO2 92%, TELE MONITOR READS SINUS RHTHM 96, STILL ON NS+20 MEQ KCL @70ML/HR HAVE DIAZ WITH YELLOW URINE DRAINING VIA GRAVITY, NO SIGNIFICANT CHANGES ON CONDITION NOTED, ALL NEEDS ATTENDED BED ON LOWEST POSITION AND LOCKED SIDE RAILS UP X2 CALL LIGHT WITHIN REACH WILL ENDORSED TO AM SHIFT NURSE
--- NOTE | 2020-08-31 07:10 | NUR ---
RN NOTES RECEIVED PATIENT IN BED RESTING COMFORTABLY IN MODERATE HIGH BACK REST, LETHARGIC AND RESPONSIVE TO DEEP PAIN, REMAINED ON EVAP RATE 18 TV 500 AND FIO2 100% AND PEEP 5 TOLERATED AT THIS TIME SATURATION NOW 97%. ST ON MONITOR HR 100'S. IV SITE REMAINED INTACT AND PATENT. DIAZ CATH INTACT AND PATENT DRAINING FREELY VIA GRAVITY. SAFETY MEASURES MAINTAINED, WILL CONTINUE TO MONITOR.
[2020-08-31] MEDS: IPRATROPIUM NEB FS 0.5 MG/2.5 ML AMPUL.NEB NEB SCH ×2 (07:30→19:43)
[2020-08-31] MEDS: ACETYLCYSTEINE 10% SOLN 400 MG/4 ML VIAL NEB SCH ×2 (07:30→19:43)
[2020-08-31] MEDS: PANTOPRAZOLE 40 MG VIAL IV SCH (08:08)
[2020-08-31] MEDS ORDERED: IV NS 0.9% 1,000 ML IV PRN (09:00)
[2020-08-31] MEDS: IV D5/0.45 NACL 1,000 ML IV SCH (11:10)
[2020-08-31] MEDS: MEROPENEM 500 MG in IV NS 0.9% 100 ML IV SCH ×2 (12:31→21:21)
[2020-08-31] MEDS: ENOXAPARIN SODIUM 40 MG/0.4 ML DISP.SYRIN SQ SCH (12:35)
--- NOTE | 2020-08-31 18:38 | NUR ---
AUTOMATIC PROFILE SHAPER OPERATOR NOTES PT ON BED OPEN EYES BUT DOES NOT FOLLOW COMMANDS, STILL ON AVAP SETTING PER FIO2 100% SPO2 94%, TELE MONITOR READS SINUS RHTHM 85, STILL ON D5 1/2 NS @70ML/HR, DIAZ WITH YELLOW URINE DRAINING VIA GRAVITY, SAFETY MEASURES MAINTAINED, DNR/DNI, WILL ENDORSE TO CHIP DRIER NURSE FOR BEA.
--- NOTE | 2020-08-31 19:30 | NUR ---
RN NOTE RECEIVED PT IN BED, MOANS TO DEEP PAIN . ON AVAP MODE, FIO2 60 %. PEEP 5, NO SIGNS OF DISTRESS NOTED, O2 SAT 97 %. ON TELE MONITORING, SHOWS SR WITH HR OF 84, PT IV PATENT AND INTACT, ON D5 1/2 NS AT 70 ML/HR. DIAZ IN PLACE DRAINING URINE BY GRAVITY. ALL SAFETY MEASURE IN PLACE. WILL CONTINUE TO MONITOR.
--- NOTE | 2020-08-31 20:12 | NUR ---
PT RECEIVED ON AVAPS MODE. PT TOLERATING SETTINGS. ALARMS SET AND AUDIBLE. CONTINUE TO MONITOR. Addendum: 08/31/20 at 2014 by FRANCO CLOUD RT Amended: Links added.
--- NOTE | 2020-08-31 20:30 | NUR ---
RN NOTE PT SON AT BEDSIDE, PT OPEN EYES. NO DISTRESS NOTED.
[2020-09-01] VITALS (25 sets, daily range): BP systolic 70–168; BP diastolic 36–94
[2020-09-01] MEDS: IV D5/0.45 NACL 1,000 ML IV SCH (01:12)
[2020-09-01 04:26] LABS: BASOPHILS % (AUTO) 0.1 % (0.0-2.0); HEMATOCRIT 37 % (33-45); HEMOGLOBIN 11.9 g/dL (11.5-14.8); LYMPHOCYTES # (AUTO) 0.9 K/uL (0.8-4.8); MEAN CORPUSCULAR HGB CONC 33 g/dl (31.0-36.0); MEAN CORPUSCULAR VOLUME 89 fL (82-100); MONOCYTES # (AUTO) 0.9 K/uL (0.1-1.30); MONOCYTES % (AUTO) 5.2 % (2.0-12.0); NEUTROPHILS # (AUTO) 15.8 K/uL (1.8-8.9); NEUTROPHILS % (AUTO) 89.7 % (43.0-81.0); PLATELET COUNT (AUTO) 192 K/uL (150-450); WHITE BLOOD COUNT (AUTO) 17.7 K/uL (4.3-11.0)
[2020-09-01] MEDS: MEROPENEM 500 MG in IV NS 0.9% 100 ML IV SCH ×3 (05:01→21:00)
[2020-09-01 05:10] LABS: CALCIUM, SERUM 8.4 mg/dL (8.5-10.1); CARBON DIOXIDE 28 mmol/L (21-32); CHLORIDE 112 mmol/L (98-107); CREATININE 1.9 mg/dL (0.6-1.3); GLUCOSE 250 mg/dL (74-106); MAGNESIUM 2.3 mg/dL (1.8-2.4); PHOSPHORUS 3.4 mg/dL (2.5-4.9); SODIUM SERUM 150 mmol/L (136-145)
[2020-09-01 05:14] LABS: POTASSIUM 2.6 mmol/L (3.5-5.1)
[2020-09-01 05:15] LABS: UREA NITROGEN, BLOOD 97 mg/dL (7-18)
--- NOTE | 2020-09-01 06:15 | NUR ---
RN NOTE PT POTASSIUM AT 2.6, NOTIFIED MARKET RELATIONSHIP MANAGER, DR. BRYAN. ORDERED KCL 80 MEQ IV. ORDER NOTED AND CARRIED OUT. CHARGE NURSE MADE AWARE.
[2020-09-01] MEDS: POTASSIUM CHLORIDE 10 MEQ/50 ML PREMIXED IVPB FOR PERIPHERAL LINE IV PRN ×2 (06:37→08:04)
[2020-09-01] MEDS ORDERED: IV NS 0.9% 250 ML IV PRN (07:00)
--- NOTE | 2020-09-01 07:00 | NUR ---
RN CLOSING NOTE: PATIENT REMAINS IN ROOM IN NO SIGNS OF RESPIRATORY DISTRESS, PATIENT STILL ON APAP;TOLERATING SETTINGS WELL SATURATING @ >95% SP02. SAFETY MEASURES IMPLEMENTED, BED IN LOWEST POSITION, LOCKED, SIDE RAILS UP, CALL LIGHT WITHIN REACH. ALL NEEDS AND ORDERS ADDRESSED DURING THE SHIFT. IV ACCESS MAINTAINED INTACT, SECURED AND FLUSHING WELL. KCL IV STARTED ORDERD. ALL DUE MEDS GIVEN ORDERED & SCHEDULED ; PATIENT TOLERATED WELL. PATIENT KEPT CLEAN AND COMFORTABLE WITHIN THE SHIFT. PATIENT ENDORSED TO INCOMING SHIFT RN WITH STABLE VITAL SIGN AND FOR CONTINUITY OF CARE.
[2020-09-01] MEDS: IPRATROPIUM NEB FS 0.5 MG/2.5 ML AMPUL.NEB NEB SCH ×2 (07:30→19:47)
[2020-09-01] MEDS: ACETYLCYSTEINE 10% SOLN 400 MG/4 ML VIAL NEB SCH ×2 (07:30→19:46)
--- NOTE | 2020-09-01 08:00 | NUR ---
RECEIVED PATIENT. PATIENT OPENS EYES SPONTANEOUSLY. ABLE TO TRACK SPEAKER AND MAINTAIN EYE CONTACT WHEN TALKING. LETHARGIC-ALL EXTREMITIES WITH SEVERE WEAKNESS. ON BIPAP - AVAPS MODE. STABLE WITH CURRENT SETTINGS. ATTEMPTED TO DO ORAL CARE- PATIENT QUICKLY DESated TO 70'S, BRADYCARDIC AT 30'S. PACED BACK TOBIPAP MASK RIGHT AWAY. MEPILEX INPLACED TO NASAL BRIDGE TO PREVENT SKIN BREAKDOWN FROM PRESSURE OF MASK. NOTED NOSE BRIDGE WITH REDNESS- UNABLE TO TAKE PICTURE SECONDARY TO RAPID DETERIORATION CRISTIAN MASK IS OFF. TRAVEL PTA MIRTA AWARE. SR ON MONITOR 90'S. BP STABLE. REMAINS NPO. UO INADEQUATE WITH NEPHRO FOLLOWING. SKIN REMAINS INTACT WITHOUT NEW BREAKDOWN. SPOKE TO ANNALEE ANSARI AND UPDATE OF CONDITION . POC DISCUSSED.
[2020-09-01] MEDS: PANTOPRAZOLE 40 MG VIAL IV SCH (08:04)
--- NOTE | 2020-09-01 08:45 | NUR ---
WOUND CARE CONSULT: PT UNSTABLE FOR SKIN ASSESSMENT AT THIS TIME. RECOMMENDATIONS MADE FOR SKIN PROTECTION. DISCUSSED WITH NURSING STAFF. PT IS ON [facility] LOW AIRLOSS BED. MD IN AGREEMENT WITH PLAN OF CARE.
[2020-09-01] MEDS: POTASSIUM CL. PREMIX PERIPHER. 50 ML IV SCH ×6 (09:29→15:25)
--- NOTE | 2020-09-01 09:55 | NUR ---
RN NOTE PT BEDSIDE REPORT GIVEN ROMA GÓMEZ FOR BEA. PT CURRENTLY ON BIPAP - AVAPS MODE, TOLERATING WELL WITH SPO2 OF 94%, NO SIGNS OF RESP DISTRESS OR SOB. ALL PT SAFETY PRECAUTIONS IN PLACE, WILL CONT TO MONITOR. PT'S SON CURRENTLY AT BEDSIDE
[2020-09-01] MEDS ORDERED: IV D5/0.45 NACL 1,000 ML IV PRN (10:30)
--- NOTE | 2020-09-01 11:27 | NUR ---
RN NOTE PT REPORT GIVEN TO AFSANEH PRADO FOR BEA
--- NOTE | 2020-09-01 12:05 | NUR ---
Lease Examiner note: SS requested to assist patient's family in transition to palliative care. 1205: SW spoke to patient's son, Kirby Maharaj, , who was at the patient's bedside. Kirby asked MARCI to locate a stunt person who could come to the hospital. Kirby provided MARCI with information for a local stunt person, Reverend Elkins, [phone]. 1305: MARCI attempted to locate a stunt person and contacted, Reverend Elkins. Reverend Elkins stated that he spoke to Kirby prior to MARCI's contact and would be able to come to the hospital tomorrow, 09/02/20 at 0830. No further SS intervention at this time, however SW will remain available as needed.
[2020-09-01] MEDS: ENOXAPARIN SODIUM 40 MG/0.4 ML DISP.SYRIN SQ SCH (13:24)
[2020-09-01] MEDS ORDERED: POTASSIUM CL. PREMIX PERIPHER. 50 ML IV SCH (14:00)
--- NOTE | 2020-09-01 14:48 | NUR ---
RN NOTE 1120: Received patient lethargic,son at bedside,awarefor the POC. On Avaps, no respiratory distress noted at this time. With ASTER midline intact. Johnston cath intact, noted with moderate amount yellow UOP. On KCl replacement ongoing. SR 80's on the monitor. IVF infusing as ordered. 1130: S/E by Dr. Leon, continue IVF as ordered. 1400: S/E by Dr. Muniz as requested by son, MD spoke with son and answered questions andf concerns. 1440: No any significant changes noted at this time. Kept clean, warm and dry. Needs attended.
[2020-09-01] MEDS ORDERED: MORPHINE SULFATE PF DRIP 250 MG in IV D5W 240 ML IV PRN (19:00)
--- NOTE | 2020-09-01 19:11 | NUR ---
RN NOTE SonKirby spoke with charge nurse and decided to do comfort measures at 11pm when and an MD cousin comes. Informed Dr. Polo and Dr. Muniz with order of Morphine 5mg IVP then start Morphine drip start 5mg/hr then remove AVAPS/vent 2 hours after starting the drip. Verified with CN re: the orders. Endorsed to next shift. VSS at this time on AVAPS. Addendum: 09/01/20 at 1916 by KHADAR WEBB RN Dr. Muniz changed order to may remove AVAPS 1 hr after starting Morphine drip, carried out, informed next shift about the changes.
--- NOTE | 2020-09-01 19:32 | NUR ---
GENERAL HELPER. INITIAL ASSESSMENT. RECEIVED THE PT REST ON THE BED. OPEN EYES. DOESNOT FOLLOW COMMANDS. VERY LETHARGIC. BIPAP ON SETTINGS 15/5. RATE IS 18,TV 500, FIO2 50%, PEEP 5. SAT 98%. GANG HEMSTITCHING MACHINE OPERATOR SHOWING NSR. IV LT UPPER ARM PICC LINE. IVF D51/2NS @ 70 ML/H. HOB ELEVATED. NPO. FC PATENT. PLAN IS TODAY LATER COMFORT MEASURE. FAMILY WILL COME AFTER 8 PM.
--- NOTE | 2020-09-01 20:26 | NUR ---
manager nicu. son at bed side. waiting for other family member .
--- NOTE | 2020-09-01 21:11 | NUR ---
PRESS BRAKE OPERATOR. MONITOR SHOWING S ELKE. SON AT BED SIDE. WAITING FOR FAMILY
--- NOTE | 2020-09-01 21:20 | NUR ---
BLEACH MAKER. BROADCAST OPERATIONS TECHNICIAN AT BED SIDE.
--- NOTE | 2020-09-01 22:38 | NUR ---
RESEARCH ANIMAL ATTENDANT. HEART RATE WENT DOWN BECOME ASYSTOLE. FAMILY AT BED SIDE. PRONOUNCED BY WELDER/FABRICATOR ED AT 2122 . NOTIFIED [employer]. PT IS NOT CANIDATE FOR ORGAN DONATION. CASE #[id number]. SPOKE WITH AREN.POST MORTUM CARE GIVEN. FAMILY STILL AT BED SIDE. .
[2020-09-01] MEDS ORDERED: MORPHINE SULFATE INJ 2 MG/ML DISP.SYRIN IV ONE (23:00)
--- NOTE | 2020-09-02 00:22 | NUR ---
CLAY PIGEON SETTER. BODY SEND TO [facility] AT 2300.
== END 2020-09-01 21:23 | DRG 871 ==
LOC: ER 05:32 → ICU 09:18
PROVIDERS: ATTEND Nurse Practitioner Acute Care
PROC: 05H633Z Insertion of Infusion Device into Left Subclavian Vein, Percutaneous Approach (ICD-10-PCS; principal; 2020-08-27)
PROC: B547ZZA Ultrasonography of Left Subclavian Vein, Guidance (ICD-10-PCS; 2020-08-27)
PROC: 5A09557 Assistance with Respiratory Ventilation, Greater than 96 Consecutive Hours, Continuous Positive Airway Pressure (ICD-10-PCS; 2020-08-27)
DX: A41.9 Sepsis, unspecified organism (principal); J96.02 Acute respiratory failure with hypercapnia; I50.31 Acute diastolic (congestive) heart failure; J96.01 Acute respiratory failure with hypoxia; J15.6 Pneumonia due to other Gram-negative bacteria; J69.0 Pneumonitis due to inhalation of food and vomit; I50.33 Acute on chronic diastolic (congestive) heart failure; R53.2 Functional quadriplegia; J15.9 Unspecified bacterial pneumonia; E87.1 Hypo-osmolality and hyponatremia; G12.21 Amyotrophic lateral sclerosis; J93.9 Pneumothorax, unspecified; J98.11 Atelectasis; N17.9 Acute kidney failure, unspecified; N39.0 Urinary tract infection, site not specified; E87.3 Alkalosis; K44.9 Diaphragmatic hernia without obstruction or gangrene; E87.6 Hypokalemia; E86.0 Dehydration; Z20.822 Contact with and (suspected) exposure to COVID-19; Z66 Do not resuscitate; Z85.528 Personal history of other malignant neoplasm of kidney; E66.9 Obesity, unspecified; R13.10 Dysphagia, unspecified; Z68.27 Body mass index [BMI] 27.0-27.9, adult; J98.2 Interstitial emphysema
CPT/HCPCS: 36410; 36415; 36600; 71045-TC; 80048-TC; 80053-TC; 80061-TC; 80076-TC; 81001; 82803-TC; 82962-TC; 83735-TC; 83880; 84100-TC; 84443-TC; 84484-TC; 85025-TC; 85730-TC; 87040-TC; 87081-TC; 87086-TC; 87186-TC; 93307-TC; 94668-TC; 94760-TC; 94799-TC; 99082-TC; C9113; C9803; G0378; J1650; J1940; J2185; J2274; J2543; J3480; J3490; J7030; J7050; J7060; U0003